=== PATIENT | female | born 1995 ===

== ENCOUNTER 2022-03-26 09:49 | Emergency (ER) | payer MEDICAID ==
[2022-03-26 10:21] VITALS: BP 96/66
== END 2022-03-28 12:03 | disposition left against medical advice (07) ==
LOC: ED 09:49
DX: Z04.1 Encounter for examination and observation following transport accident (principal); Z53.21 Procedure and treatment not carried out due to patient leaving prior to being seen by health care provider; V89.2XXA Person injured in unspecified motor-vehicle accident, traffic, initial encounter; Y93.89 Activity, other specified; Y92.89 Other specified places as the place of occurrence of the external cause; Y99.8 Other external cause status

== ENCOUNTER 2022-04-27 14:06 | Emergency (ER) | payer MEDICAID ==
[2022-04-27 14:21] VITALS: BP 107/71
--- NOTE | 2022-04-27 14:50 | XRay Report ---
CHEST 2 VIEWS INDICATION / CLINICAL INFORMATION: Chest pain for 2 days. COMPARISON: None available. FINDINGS: SUPPORT DEVICES: None. HEART / MEDIASTINUM: The heart size and pulmonary vasculature are normal. The aorta is normal in nubia lux. LUNGS / PLEURA: No significant pulmonary or pleural abnormality. No pneumothorax. ADDITIONAL FINDINGS: There is mild thoracolumbar scoliosis. IMPRESSION: No acute findings. Signer Name: Scotty Day MD Signed: 04/27/2022 2:45 PM Workstation Name: [email or web address]
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
--- NOTE | 2022-04-29 18:56 | Electrocardiograph Report ---
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
== END 2022-04-27 18:20 | disposition home or self-care (01) ==
LOC: ED 14:06
DX: R07.89 Other chest pain (principal); Z98.890 Other specified postprocedural states
CPT/HCPCS: 71046; 93005; 99283